=== PATIENT | female | born 1960 | race Two or more races ===

== ENCOUNTER 2023-08-22 05:42 | Emergency (ER) | payer OTHER ==
[~2023-08-22] VITALS: Ht 152.4 cm; Wt 52.2 kg
[2023-08-22] MEDS ORDERED: CRESTOR10 MG PO (06:00)
[2023-08-22] MEDS ORDERED: CALCIUM500 M2 PO (06:00)
[2023-08-22 07:48] LABS: URINE APPEARANCE Clear; URINE BILIRRUBIN Negative (NEGATIVE); URINE BLOOD Trace; URINE COLOR Yellow; URINE GLUCOSE Negative (NEGATIVE); URINE LEUKOCYTE Large; URINE NITRATE Negative; URINE PROTEIN Negative (NEGATIVE); URINE UROBILINOGEN 0.2 E.U./dl
[2023-08-22 07:49] LABS: URINE BACTERIA 295.9 uL (0.0-1933); URINE EPITHELIAL CELLS 4.3 uL (0.0-38.8); URINE WBC 278.8 uL (0.0-23.2)
[2023-08-22 08:56] LABS: URINE RBC 0.5 uL (0.0-20.8)
== END 2023-08-22 09:31 | disposition home or self-care (01) ==
LOC: ER 05:44
PROVIDERS: General Practice
DX: N39.0 Urinary tract infection, site not specified (principal)
CPT/HCPCS: 96372; 99283; J0696